=== PATIENT | female | born 1975 | race Caucasian/White ===

== ENCOUNTER 2017-07-06 12:28 | Emergency (ER) | payer OTHER ==
[~2017-07-06] VITALS: Ht 157.5 cm; Wt 83.5 kg
[2017-07-06] MEDS ORDERED: NORVASC2.5 M1 (13:25)
[2017-07-06] MEDS ORDERED: ATORVASTATIN CA10 MG (13:25)
== END 2017-07-06 22:32 | disposition home or self-care (01) ==
LOC: ER 12:28
DX: K52.9 Noninfective gastroenteritis and colitis, unspecified (principal); K80.20 Calculus of gallbladder without cholecystitis without obstruction

== ENCOUNTER → 2017-08-06 12:50 | Outpatient (CLI) | payer OTHER ==
[~2017-08-06 12:50] MED LIST: ATORVASTATIN CA10 MG; NORVASC2.5 M1
== END | disposition home or self-care (01) ==
LOC: EKG 12:50
DX: K80.20 Calculus of gallbladder without cholecystitis without obstruction (principal); Z01.810 Encounter for preprocedural cardiovascular examination

== ENCOUNTER 2017-09-02 06:42 | Day surgery (SDC) | payer OTHER ==
[2017-09-02] MEDS ORDERED: ULTRACET PO (13:59)
== END 2017-09-02 16:05 | disposition home or self-care (01) ==
LOC: CIR.AMB 06:42
DX: K80.10 Calculus of gallbladder with chronic cholecystitis without obstruction (principal)

== ENCOUNTER 2018-07-06 14:57 | Emergency (ER) | payer OTHER ==
[~2018-07-06] VITALS: Ht 160 cm; Wt 80.7 kg
[~2018-07-06 14:57] MED LIST changes: +ULTRACET PO
== END 2018-07-06 19:16 | disposition home or self-care (01) ==
LOC: ER 14:57
DX: O20.0 Threatened abortion (principal); N93.8 Other specified abnormal uterine and vaginal bleeding; N83.292 Other ovarian cyst, left side